=== PATIENT | male | born 1950 | race Caucasian/White ===

== ENCOUNTER 2019-06-14 09:32 | Outpatient (CLI) | payer MEDICARE, OTHER ==
--- NOTE | 2019-06-15 | XRAY Report ---
Reason: PAINFUL L MIDTARSAL JT,X WEEKS Procedure Date: 06/14/2019 Accession Number: [id number] / [id number] Procedure: XR - Foot 3 View LT CPT Code: Final Report FULL RESULT: EXAM: LEFT FOOT RADIOGRAPHY. EXAM DATE: 06/14/2019 09:36 AM. CLINICAL HISTORY: Painful left midtarsal joints for weeks. COMPARISON: None. TECHNIQUE: 3 views. FINDINGS: Bones: Normal. No fractures or bone lesions. Joints: Degenerative narrowing, sclerosis, and spurring of the tarsal joints, worst medially. No subluxations. Soft Tissues: Unremarkable. IMPRESSION: Tarsal osteoarthritis. [facility]
== END 2019-06-14 09:33 | disposition home or self-care (01) ==
LOC: DI 09:32
PROVIDERS: ATTEND Podiatrist
DX: M19.072 Primary osteoarthritis, left ankle and foot (principal)

== ENCOUNTER 2021-01-24 12:28 | Day surgery (SDC) | payer MEDICARE, OTHER ==
[2021-01-24] MEDS ORDERED: LACTATED RINGERS 1,000 ML IV ONE ×2 (13:04→15:11)
[2021-01-24] MEDS ORDERED: fentaNYL 250 MCG/5 ML VIAL ONE (14:24)
[2021-01-24] MEDS ORDERED: MIDAZOLAM 2 MG/2 ML VIAL ONE ×2 (14:24)
[2021-01-24 15:40] VITALS: BP 129/79
== END 2021-01-24 12:29 | disposition home or self-care (01) ==
LOC: SDS 12:28
PROVIDERS: ATTEND Surgery
PROC: 0DBL8ZZ Excision of Transverse Colon, Via Natural or Artificial Opening Endoscopic (ICD-10-PCS; 2021-01-24)
PROC: 0DBK8ZZ Excision of Ascending Colon, Via Natural or Artificial Opening Endoscopic (ICD-10-PCS; principal; 2021-01-24 13:30)
DX: Z12.11 Encounter for screening for malignant neoplasm of colon (principal); D12.2 Benign neoplasm of ascending colon; D12.3 Benign neoplasm of transverse colon; K57.30 Diverticulosis of large intestine without perforation or abscess without bleeding; K64.8 Other hemorrhoids; K64.4 Residual hemorrhoidal skin tags
CPT/HCPCS: 45380; J3010; J7120; 88305